=== PATIENT | male | born 1985 | race Two or more races ===

== ENCOUNTER 2017-06-13 12:01 | Emergency (ER) | payer OTHER ==
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
[2017-06-13] MEDS ORDERED: Bacitracin Oint 1 GM U/D Packet TOP ONE (12:37)
[2017-06-13] MEDS ORDERED: Lidocaine 1% 20 ML MDV INJECT ONE (12:37)
[2017-06-13] MEDS ORDERED: Acetaminophen/HYDROcodone 325-5 MG Tab PO ONE (12:45)
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
== END 2017-06-13 14:31 | disposition home or self-care (01) ==
LOC: MW.ED 12:01
DX: S01.21XA Laceration without foreign body of nose, initial encounter (principal); S01.511A Laceration without foreign body of lip, initial encounter; S09.90XA Unspecified injury of head, initial encounter; W22.8XXA Striking against or struck by other objects, initial encounter
CPT/HCPCS: 12013; 70450; 70486; 99283; A9270